=== PATIENT | female | born 1990 | race Caucasian/White ===

== ENCOUNTER 2022-01-10 08:30 | Emergency (ER) | payer MEDICAID ==
[~2022-01-10] VITALS: Ht 160 cm; Wt 72.6 kg
[2022-01-10 08:50] VITALS: BP_SYST 120
--- NOTE | 2022-01-10 08:50 | NUR ---
Patient triaged and placed in waiting room. VSS and patient appears in no acute distress at this time. Accompanied by SELF, awaiting available bed, and MD notified of need for MSE.
[2022-01-10 09:33] LABS: BILIRUBIN,URINE NEGATIVE (NEGATIVE); BLOOD, URINE 3+ (NEGATIVE); CLARITY/URINE SL CLOUDY (CLEAR); COLOR,URINE YELLOW (YELLOW); GLUCOSE,URINE NEGATIVE (NEGATIVE); KETONES,URINE TRACE (NEGATIVE); LEUKOCYTE ESTERASE ,URINE TRACE (NEGATIVE); NITRITE, URINE NEGATIVE (NEGATIVE); PROTEIN URINE NEGATIVE (NEGATIVE); UROBILINOGEN,URINE 0.2 (0.2-1.0)
[2022-01-10 09:56] LABS: RBC,URINE 0-3 /HPF (0-3)
[2022-01-10 09:57] LABS: BACTERIA,URINE None Seen /HPF (None Seen); MUCUS,URINE None Seen /LPF (None Seen)
--- NOTE | 2022-01-10 10:29 | NUR ---
Patient to ER bed H1 to gown for evaluation. Side rails up. Report given to SATHYA HARLEY.
--- NOTE | 2022-01-10 10:45 | NUR ---
Pt to ER bib self CC Head ache frontal lobe radiates to back of cranium. Nausea and shakines , dizzy and sharp consitant pain to head. Pt states 3 days of pain no relief from excedrin and ibuprofen.
--- NOTE | 2022-01-10 10:55 | NUR ---
ER at bedside examining patient.
[2022-01-10] MEDS ORDERED: NACL 0.9% 1,000 ML IV ONE (11:00)
[2022-01-10] MEDS ORDERED: ceFAZolin SODIUM 2 GM VIAL IM ONE (11:00)
[2022-01-10] MEDS ORDERED: MAGNESIUM SULFATE/D5W 100 ML IV ONE (11:00)
[2022-01-10] MEDS ORDERED: DEXAMETHASONE SOD PHOSPHATE 4 MG/ML VIAL IVP ONE (11:00)
[2022-01-10] MEDS ORDERED: METOCLOPRAMIDE HCL 10 MG/2 ML VIAL IVP ONE (11:00)
[2022-01-10] MEDS ORDERED: DIPHENHYDRAMINE INJ 50 MG/ML VIAL IVP ONE (11:00)
[2022-01-10 11:12] LABS: BASOPHILS % (AUTO) 0.4 % (0.0-2.0); EOSINOPHILS % (AUTO) 0.3 % (0.0-4.0); HEMOGLOBIN 14.6 g/dL (12.0-16.0); LYMPHOCYTES # (AUTO) 1.9 K/uL (1.0-5.5); LYMPHOCYTES % (AUTO) 22.8 % (20.5-51.5); MEAN CORPUSCULAR HEMOGLOBIN 32 pg (27-31); MEAN CORPUSCULAR HGB CONC 36 % (32-36); MEAN CORPUSCULAR VOLUME 89 fL (79.0-98.0); MONOCYTES # (AUTO) 0.4 K/uL (0.0-1.0); MONOCYTES % (AUTO) 5.3 % (1.7-9.3); NEUTROPHILS # (AUTO) 5.8 K/uL (1.8-7.7); NEUTROPHILS % (AUTO) 71.2 % (40.0-70.0); PLATELET COUNT (AUTO) 277 K/uL (130-430); RED CELL DISTRIBUTION WIDTH 12.9 % (9.0-15.0); WHITE BLOOD COUNT (AUTO) 8.1 K/uL (4.8-10.8)
[2022-01-10 11:35] LABS: CALCIUM 8.7 mg/dL (8.4-11.0); CREATININE 0.81 mg/dL (0.55-1.30); POTASSIUM 4.2 mmol/L (3.5-5.1)
[2022-01-10 11:49] LABS: TOTAL BILIRUBIN 0.5 mg/dL (0.0-1.0)
--- NOTE | 2022-01-10 12:30 | NUR ---
Patient given written and verbal discharge instructions and verbalizes understanding. ER MD discussed with patient the results and treatment provided. Patient in stable condition. ID arm band removed. IV catheter removed intact and dressing applied, no active bleeding. Rx of CEPHALOSPORIN given. Patient educated on pain management and to follow up with PMD. Opportunity for questions provided and answered. Medication side effect fact sheet provided.
[2022-01-10] MEDS ORDERED: CEPH-548 PO (13:38)
[2022-01-10 16:05] VITALS: BP_SYST 124
== END 2022-01-10 12:30 | disposition home or self-care (01) ==
LOC: SED 08:30
DX: G43.909 Migraine, unspecified, not intractable, without status migrainosus (principal); N39.0 Urinary tract infection, site not specified; I10 Essential (primary) hypertension; Z79.899 Other long term (current) drug therapy
CPT/HCPCS: 99284; 96365; 96375; 80053; 81000; 85025; 87040; 87086; 36415; 81025; 96372; 83605; J1100; J1200; J2765

== ENCOUNTER 2023-02-28 07:36 | Emergency (ER) | payer MEDICAID ==
[~2023-02-28] VITALS: Ht 160 cm; Wt 72.6 kg
[~2023-02-28 07:36] MED LIST: CEPH-548 PO
[2023-02-28 07:42] VITALS: BP_SYST 122; PULSE 78; RESP 22; TEMP 98.3; O2SAT 100
[2023-02-28] MEDS ORDERED: METOCLOPRAMIDE HCL 10 MG/2 ML VIAL IVP ONE (08:00)
[2023-02-28] MEDS ORDERED: DIPHENHYDRAMINE INJ 50 MG/ML VIAL IVP ONE (08:00)
[2023-02-28 08:24] LABS: BASOPHILS % (AUTO) 0.6 % (0.0-2.0); EOSINOPHILS % (AUTO) 0.7 % (0.0-4.0); HEMOGLOBIN 14.1 g/dL (12.0-16.0); LYMPHOCYTES # (AUTO) 2.1 K/uL (1.0-5.5); LYMPHOCYTES % (AUTO) 35.1 % (20.5-51.5); MEAN CORPUSCULAR HEMOGLOBIN 29 pg (27-31); MEAN CORPUSCULAR HGB CONC 33 % (32-36); MEAN CORPUSCULAR VOLUME 89 fL (79.0-98.0); MONOCYTES # (AUTO) 0.3 K/uL (0.0-1.0); MONOCYTES % (AUTO) 4.9 % (1.7-9.3); NEUTROPHILS # (AUTO) 3.5 K/uL (1.8-7.7); NEUTROPHILS % (AUTO) 58.7 % (40.0-70.0); PLATELET COUNT (AUTO) 326 K/uL (130-430); RED BLOOD CELL COUNT(AUTO) 4.84 MIL/uL (4.2-6.2); RED CELL DISTRIBUTION WIDTH 13.4 % (9.0-15.0)
[2023-02-28 08:28] LABS: ERYTHROCYTE SEDIMENTATION RATE 11 MM/HR (0-20)
[2023-02-28 08:40] LABS: CALCIUM 9.3 mg/dL (8.4-11.0); CREATININE 0.63 mg/dL (0.55-1.30); POTASSIUM 4.4 mmol/L (3.5-5.1)
[2023-02-28] MEDS ORDERED: IBUP-1969 PO (10:06)
[2023-02-28] MEDS ORDERED: TRAM50TA2 PO (10:06)
[2023-02-28] MEDS ORDERED: MORPHINE 2 MG/ML INJ. SYRINGE IVP ONE (10:15)
[2023-02-28 10:37] VITALS: BP_SYST 146; PULSE 78; RESP 19; TEMP 97.9; O2SAT 98
== END 2023-02-28 10:33 | disposition home or self-care (01) ==
LOC: SED 07:36
DX: G43.009 Migraine without aura, not intractable, without status migrainosus (principal); Z79.899 Other long term (current) drug therapy
CPT/HCPCS: 99285; 96374; 70450; 96375; 80048; 85025; 85651; 36415; 76376; 81025; 82397; J1200; J2765

== ENCOUNTER 2023-05-22 10:16 | Emergency (ER) | payer MEDICAID ==
[~2023-05-22] VITALS: Ht 160 cm; Wt 77.1 kg
[~2023-05-22 10:16] MED LIST changes: +IBUP-1969 PO; +TRAM50TA2 PO
[2023-05-22 10:32] VITALS: BP_SYST 124; PULSE 76; RESP 18; TEMP 98.6; O2SAT 100
[2023-05-22 11:02] LABS: BASOPHILS % (AUTO) 0.2 % (0.0-2.0); EOSINOPHILS % (AUTO) 0.1 % (0.0-4.0); HEMATOCRIT 41.2 % (36-48); HEMOGLOBIN 14.1 g/dL (12.0-16.0); LYMPHOCYTES # (AUTO) 1.4 K/uL (1.0-5.5); LYMPHOCYTES % (AUTO) 10.8 % (20.5-51.5); MEAN CORPUSCULAR HEMOGLOBIN 30 pg (27-31); MEAN CORPUSCULAR HGB CONC 34 % (32-36); MEAN CORPUSCULAR VOLUME 89 fL (79.0-98.0); MONOCYTES # (AUTO) 0.5 K/uL (0.0-1.0); MONOCYTES % (AUTO) 3.8 % (1.7-9.3); NEUTROPHILS # (AUTO) 10.8 K/uL (1.8-7.7); NEUTROPHILS % (AUTO) 85.1 % (40.0-70.0); PLATELET COUNT (AUTO) 304 K/uL (130-430); RED BLOOD CELL COUNT(AUTO) 4.64 MIL/uL (4.2-6.2); RED CELL DISTRIBUTION WIDTH 13.4 % (9.0-15.0); WHITE BLOOD COUNT (AUTO) 12.7 K/uL (4.8-10.8)
[2023-05-22 11:12] LABS: CALCIUM 8.9 mg/dL (8.4-11.0); CREATININE 0.75 mg/dL (0.55-1.30); POTASSIUM 3.8 mmol/L (3.5-5.1)
[2023-05-22 11:16] LABS: BILIRUBIN,DIRECT 0.1 mg/dL (0.0-0.3); TOTAL BILIRUBIN 0.5 mg/dL (0.0-1.0); TOTAL PROTEIN, SERUM 7.5 g/dL (6.4-8.3)
[2023-05-22 11:42] LABS: BILIRUBIN,URINE NEGATIVE (NEGATIVE); BLOOD, URINE 3+ (NEGATIVE); COLOR,URINE YELLOW (YELLOW); GLUCOSE,URINE NEGATIVE (NEGATIVE); KETONES,URINE 3+ (NEGATIVE); LEUKOCYTE ESTERASE ,URINE TRACE (NEGATIVE); NITRITE, URINE NEGATIVE (NEGATIVE); PROTEIN URINE NEGATIVE (NEGATIVE); UROBILINOGEN,URINE 0.2 (0.2-1.0)
[2023-05-22 11:49] LABS: CLARITY/URINE HAZY (CLEAR)
[2023-05-22 12:06] LABS: BACTERIA,URINE MODERATE /HPF (None Seen); MUCUS,URINE 1+ /LPF (None Seen)
[2023-05-22] MEDS: KETOROLAC TROMETHAMINE 15 MG VIAL IVP ONE (12:31)
[2023-05-22] MEDS ORDERED: NITR-85 PO (13:10)
[2023-05-22 13:52] VITALS: BP_SYST 124; PULSE 76; RESP 18; TEMP 98.6; O2SAT 100
== END 2023-05-22 13:55 | disposition home or self-care (01) ==
LOC: SED 10:16
DX: R10.31 Right lower quadrant pain (principal); R11.0 Nausea; Z79.899 Other long term (current) drug therapy
CPT/HCPCS: 99285; 74176; 96374; 76856; 80076; 80048; 81001; 83690; 85025; 87086; 36415; 81025; 81000; 81015; J1885

== ENCOUNTER 2023-06-03 08:54 | Emergency (ER) | payer MEDICAID ==
[~2023-06-03] VITALS: Ht 160 cm; Wt 77.1 kg
[~2023-06-03 08:54] MED LIST changes: +NITR-85 PO
[2023-06-03 09:04] VITALS: BP_SYST 127; PULSE 82; RESP 15; TEMP 97; O2SAT 98
[2023-06-03] MEDS ORDERED: TRAM50TA2 PO (09:45)
[2023-06-03 09:59] VITALS: BP_SYST 127; PULSE 77; RESP 16; TEMP 97; O2SAT 98
== END 2023-06-03 09:58 | disposition home or self-care (01) ==
LOC: SED 08:54
DX: S09.90XA Unspecified injury of head, initial encounter (principal); Z79.899 Other long term (current) drug therapy; W22.8XXA Striking against or struck by other objects, initial encounter; Y93.89 Activity, other specified; Y92.89 Other specified places as the place of occurrence of the external cause; Y99.8 Other external cause status
CPT/HCPCS: 81025; 99283